=== PATIENT | female | born 1965 | race Caucasian/White ===

== ENCOUNTER 2017-08-08 08:31 | Emergency (ER) | payer MEDICAID ==
[~2017-08-08] VITALS: Ht 160 cm; Wt 87.2 kg
[~2017-08-08 08:31] MED LIST: AMLO10TA2 PO; DIVA250T4 PO; FLUO40CA9 PO; HYDR12.58 PO; LISI-167 PO
[2017-08-08 09:48] LABS: HEMATOCRIT 47.6 % (34.6-47.8); WHITE BLOOD COUNT 11.4 x10^3/uL (3.4-10)
[2017-08-08] MEDS ORDERED: LISINOPRIL 10 MG TABLET PO ONE (10:00)
[2017-08-08] MEDS ORDERED: AMLODIPINE 5 MG TABLET PO ONE (10:00)
[2017-08-08] MEDS ORDERED: HYDROCHLOROTHIAZIDE 12.5 MG CAPSULE PO ONE (10:00)
[2017-08-08 10:01] LABS: BLOOD UREA NITROGEN 8 mg/dL (7-18)
[2017-08-08 10:04] LABS: IS PT STATUS REG ER OR PRE ER? YES
[2017-08-08 13:13] VITALS: BP 152/105
== END 2017-08-08 13:14 | disposition home or self-care (01) ==
LOC: ED 09:07
DX: B96.89 Other specified bacterial agents as the cause of diseases classified elsewhere (principal); J20.8 Acute bronchitis due to other specified organisms; I10 Essential (primary) hypertension
CPT/HCPCS: 36415; 71020; 80048; 82040; 83880; 84484; 85025; 87040; 93005; 99285

== ENCOUNTER 2018-02-04 15:15 | Emergency (ER) | payer MEDICAID ==
[~2018-02-04] VITALS: Ht 160 cm; Wt 87.0 kg
[2018-02-04 15:55] LABS: BASOPHILS # (AUTO) 0.04 x10^3/uL (0-0.1); BASOPHILS % (AUTO) 1 % (0-1); EOSINOPHILS # (AUTO) 0.16 x10^3/uL (0-0.4); EOSINOPHILS % (AUTO) 2 % (1-7); LYMPHOCYTES # (AUTO) 3.07 x10^3/uL (1-3.4); LYMPHOCYTES % (AUTO) 36 % (22-44); MD NO; MEAN CORPUSCULAR HEMOGLOBIN 29.5 pg (27.0-34.8); MEAN CORPUSCULAR HGB CONC 33.7 g/dL (32.4-35.8); MEAN CORPUSCULAR VOLUME 87.4 fL (80-100); MEAN PLATELET VOLUME 7.4 fL (7.4-10.4); MONOCYTES # (AUTO) 0.46 x10^3/uL (0.2-0.8); MONOCYTES % (AUTO) 5 % (2-9); NEUTROPHILS # (AUTO) 4.84 x10^3/uL (1.8-6.8); NEUTROPHILS % (AUTO) 57 % (42-75); PLATELET COUNT 253 x10^3/uL (130-400); RED CELL DISTRIBUTION WIDTH 14.6 % (9.6-15.2)
[2018-02-04] MEDS ORDERED: MAALOX/HYOSCYAMINE/LIDOCAINE 45 ML BTL PO ONE (16:00)
[2018-02-04 16:07] LABS: ALBUMIN 3.8 g/dL (3.4-5.0); ANION GAP 8 mmol/L (5-15); CALCIUM 8.8 mg/dL (8.5-10.1); CHLORIDE 105 mmol/L (98-107); CREATININE 0.81 mg/dL (0.55-1.02)
[2018-02-04 16:25] VITALS: BP 118/86
[2018-02-04] MEDS ORDERED: POTASSIUM CHLORIDE 20 MEQ TAB.ER.PRT PO ONE (16:30)
[2018-02-04] MEDS ORDERED: POTASSIUM CHLORIDE 20 MEQ TAB.ER.PRT ONE (16:34)
== END 2018-02-04 16:56 | disposition home or self-care (01) ==
LOC: ED 16:50
DX: J02.8 Acute pharyngitis due to other specified organisms (principal); B97.89 Other viral agents as the cause of diseases classified elsewhere; E87.6 Hypokalemia; I10 Essential (primary) hypertension; Z77.22 Contact with and (suspected) exposure to environmental tobacco smoke (acute) (chronic)
CPT/HCPCS: 36415; 71046; 80048; 82040; 85025; 93005; 99285